=== PATIENT | male | born 1955 | race Caucasian/White ===

== ENCOUNTER 2020-12-27 08:58 | Observation (INO) ==
[2020-12-21 21:59] LABS: Blood Urea Nitrogen 17 mg/dL (8-23); Calcium 9.6 mg/dL (8.6-10.4); Carbon Dioxide 25 mmol/L (22-30); Chloride 101 mmol/L (96-108); Glomerular Filtration Rate 93; Glucose 148 mg/dL (70-105)
[2020-12-21 22:28] LABS: Basophils # (Auto) 0.05 K/mcL (0.00-0.30); Basophils % (Auto) 0.7 % (0.0-2.0); Eosinophils # (Auto) 0.07 K/mcL (0.00-0.70); Hematocrit 44.5 % (40.1-51.0); Hemoglobin 14.8 g/dL (13.7-17.5); Lymphocytes # (Auto) 1.06 K/mcL (1.50-4.80); Lymphocytes % (Auto) 14.9 % (15.5-49.0); Mean Cell Volume 94.3 fL (80.0-100.0); Mean Corpuscular HGB Conc 33.3 g/dL (31.0-36.0); Mean Platelet Volume 11.7 fL (7.4-10.4); Monocytes # (Auto) 0.51 K/mcL (0.10-0.90); Monocytes % (Auto) 7.2 % (1.0-12.0); Neutrophils % (Auto) 76.2 % (38.0-78.0); Platelet Count 138 K/mcL (140-440); RBC 4.72 M/mcL (4.63-6.08); Red Cell Distribution Width 13.3 % (11.5-14.5); WBC 7.1 K/mcL (4.5-11.0)
--- NOTE | 2020-12-22 18:34 | EKG ---
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
[~2020-12-27 08:58] MED LIST: ceFAZolin 2 GM in DEXTROSE 5% IN WATER 50 ML IV SCH
[2020-12-27] MEDS ORDERED: LIDOCAINE HCL/PF 100 MG/5 ML SYRINGE IV ONE (11:25)
[2020-12-27] MEDS ORDERED: PROPOFOL 200 MG/20 ML VIAL IV ONE (11:25)
[2020-12-27] MEDS ORDERED: ROCURONIUM 10 MG/ML ML IV ONE (11:25)
[2020-12-27] MEDS ORDERED: ePHEDrine 50 MG/5 ML SYRINGE (ANEST) IV ONE (11:25)
[2020-12-27] MEDS ORDERED: MAGNESIUM SULFATE 4 GM/100 ML BAG IV ONE (11:25)
[2020-12-27] MEDS ORDERED: fentaNYL 250 MCG/5 ML VIAL IV ONE (11:25)
[2020-12-27] MEDS ORDERED: SUGAMMADEX SODIUM 200 MG/2 ML VIAL IV ONE (11:25)
[2020-12-27] MEDS ORDERED: DEXAMETHASONE 10 MG/ML VIAL ONE (11:25)
[2020-12-27] MEDS ORDERED: ONDANSETRON 4 MG/2 ML VIAL ONE (11:25)
[2020-12-27] MEDS ORDERED: KETAMINE 50 MG/ML Syringe (ANEST) IV ONE (11:25)
[2020-12-27] MEDS ORDERED: LIDOCAINE W/EPI 1% 20 ML, BUPIVACAINE 0.5% 20 ML IJ ONE (11:48)
[2020-12-27] MEDS ORDERED: IOVERSOL 20 ML VIAL IJ ONE (11:48)
[2020-12-27] MEDS ORDERED: PROMETHAZINE 25 MG/ML VIAL IV PRN (12:01)
[2020-12-27] MEDS ORDERED: fentaNYL 100 MCG/2 ML VIAL IV PRN (12:01)
[2020-12-27] MEDS ORDERED: MEPERIDINE 25 MG/ML VIAL IV PRN (12:01)
[2020-12-27] MEDS ORDERED: diphenhydrAMINE 50 MG/ML VIAL IV PRN (12:01)
[2020-12-27] MEDS ORDERED: METHOCARBAMOL 1,000 MG/10 ML VIAL IV PRN (12:01)
[2020-12-27] MEDS ORDERED: ACETAMINOPHEN 1,000 MG/100 ML BAG IV ONE (12:01)
[2020-12-27] MEDS ORDERED: IPRATROPIUM/ALBUTEROL 3 ML AMPUL.NEB NEB PRN (12:01)
[2020-12-27] MEDS ORDERED: KETOROLAC 15 MG/ML VIAL IV PRN (12:01)
[2020-12-27] MEDS ORDERED: ONDANSETRON 4 MG/2 ML VIAL IV PRN ×2 (12:01→12:41)
[2020-12-27] MEDS ORDERED: LACTATED RINGERS 250 ML IV PRN (12:01)
[2020-12-27] MEDS ORDERED: NALOXONE HCL 0.4 MG/ML VIAL IV PRN (12:01)
[2020-12-27] MEDS ORDERED: LACTATED RINGERS 1,000 ML IV SCH (12:15)
--- NOTE | 2020-12-27 12:36 | Operative Note ---
Brief Operative Note Date of procedure: 12/27/20 Pre-op diagnosis: Cholelithiasis, choledocholithiasis Post-op diagnosis: same Procedure: Laparoscopic cholecystectomy, intraoperative cholangiogram, laparoscopic common bile duct exploration Grafts/Implants: No Anesthesia: GETA Findings: Cholelithiasis, chronic cholecystitis, choledocholithiasis, unable to clear duct Complications: none Surgeon: Kervin Singh Estimated blood loss (cc): 25 Specimens Removed/Pathology: other (Gallbladder and contents) Condition: stable Disposition: PACU Operative Note Operative Note: After risk benefits and alternatives to the procedure were discussed with the patient at length he verbalized understanding and desire to continue with the procedure. Patient was taken main operating room placed upon the operative table. General anesthesia was induced over endotracheal tube. Patient was prepped and draped in the standard sterile surgical fashion. Surgical timeout was taken to verify patient and procedure being performed. 1% lidocaine half percent Marcaine was used for local anesthesia throughout the case. Left upper quadrant incision was made, a varies needle was inserted and the abdominal cavity was insufflated with carbon dioxide. The abdominal cavity was then entered under direct vision using a 5 mm Optiview trocar through a supraumbilical incision. Visual inspection revealed no injuries and the varies needle was removed under direct vision. 12 mm upper midline trocar, 5 mm right upper quadrant, and a second 5 mm right upper quadrant trochars were all placed under direct vision. Patient was placed in a head up right side up position. Attention was turned to the gallbladder where multiple attachments to the omentum were carefully taken down with blunt and electrocautery dissection. The peritoneal attachments were taken down to pedunculated gallbladder, the trauma VIVIAN was carefully dissected free with blunt dissection. Once a critical view of safety was clearly identified the cystic duct was clipped, on table cholangiogram was performed which showed good filling of the common bile duct the common hepatic duct and the left and right radicles. In the distal common bile duct it was dilated and there was a filling defect. IV glucagon was given and the duct was flushed with 1% lidocaine repeat cholangiogram showed no clearing of the duct. A 4 Croatian Daniel catheter was then passed into the small bowel and passed without difficulty the balloon was blown up and the catheter was slowly pulled back, no stones were cleared, repeat cholangiogram showed continued distal filling defect. At this time a decision was made the removal or further manipulation of the common bile duct therefore the cystic duct and cystic artery were surgically clipped and transected. The gallbladder was removed from the gallbladder fossa using electrocautery this placed in Endo Catch bag removed through the upper midline incision and passed off the field for surgical pathology. Attention was turned back to the gallbladder fossa which was inspected hemostasis, lightly irrigated and hemostasis was assured. The upper midline fascial defect was then reapproximated with a interrupted 0 Vicryl suture. CO2 and trochars were removed from the abdominal cavity under direct vision. Trocar sites were inspected for hemostasis. Skin edges were closed with interrupted 4 Monocryl sutures skin glue dressings were applied. Patient was then awakened from anesthesia transported postanesthesia care unit awake alert in good condition.
[2020-12-27] MEDS ORDERED: LIDOCAINE 1% 20 ML VIAL SQ ONE (12:43)
--- NOTE | 2020-12-27 13:32 | XRay Report ---
HISTORY: FINDINGS: IMPRESSION: There are 0.6 minutes of fluoroscopy time was used. Interpreted and Authenticated by: Hima Hernandez 12/27/20
[2020-12-27] MEDS: morphine 4 MG/ML VIAL IV PRN ×3 (14:51→20:28)
[2020-12-27] MEDS: 0.9 % SODIUM CHLORIDE 10 ML SYRINGE IV SCH ×2 (14:52→23:29)
[2020-12-27] MEDS: DEXTROSE 5%-1/2NS 1,000 ML IV SCH ×2 (16:13→23:28)
[2020-12-28] MEDS: 0.9 % SODIUM CHLORIDE 10 ML SYRINGE IV SCH ×3 (04:06→20:50)
[2020-12-28] MEDS: DEXTROSE 5%-1/2NS 1,000 ML IV SCH ×4 (04:57→19:17)
--- NOTE | 2020-12-28 14:49 | Surgical Pathology Report ---
Histology Microscopic Diagnosis Specimen A- GALLBLADDER, CHOLECYSTECTOMY: --- CHRONIC CHOLECYSTITIS. --- NO GALLSTONES IDENTIFIED WITHIN THE GALLBLADDER OR SPECIMEN CONTAINER. --- ONE REACTIVE LYMPH NODE (0/1). (EBD) Procedural Impression Cholelithiasis. Gross Description Received in formalin designated as gallbladder, is a purple munguia gallbladder measuring 10.3 x 4.5 x 1.9 cm. There is a metal clip on the duct. Grossly there are no stones identified. The specimen contains viscous red bile near the duct. There is a 1.5 x 1 x 0.5 cm firmer rutherford nodule. The mucosa is red-rutherford and velvety. The wall is up to 0.3 cm thick. Welt Slasher sections are submitted in one cassette. (SCB:di) Electronically Signed Laya Mosqueda MD, FCAP Electronically Signed 12/28/2020 14:48
[2020-12-28] MEDS ORDERED: PROPOFOL 200 MG/20 ML VIAL IV ONE ×3 (15:48→17:17)
[2020-12-28] MEDS ORDERED: NITROGLYCERIN 0.6 MG/HR PATCH TD ONE (15:48)
[2020-12-28] MEDS ORDERED: INDOMETHACIN 25 MG CAPSULE PO ONE (15:48)
[2020-12-28] MEDS ORDERED: MIDAZOLAM 2 MG/2 ML VIAL IV ONE (15:50)
[2020-12-28] MEDS: LACTATED RINGERS 1,000 ML IV SCH ×2 (16:05→18:55)
[2020-12-28] MEDS ORDERED: MIDAZOLAM 2 MG/2 ML VIAL ONE (17:17)
[2020-12-28] MEDS ORDERED: IOPAMIDOL 50 ML BOTTLE IJ ONE (18:32)
--- NOTE | 2020-12-28 20:51 | Internal Med Progress Note ---
SUBJECTIVE Subjective Patient information: Note initiated : 12/28/20 at 8:47 pm Service Date, if different from initiated Date: [] Patient: Mann Wilder a 65 y/o M admitted on 12/27/20 for Laparoscopic Cholecystectomy with Interoperative. Chief Complaint: [choledocholithiasis] Mann underwent ERCP which revealed a large pigment stone, which was removed. Following procedure, he complains of sore throat, but denies any abdominal pain. Would like to resume PO hydrocodone when he is able to resume PO intake as morphine IV causes headache. Constitutional Vitals: Vital Signs Temp Pulse Resp BP Pulse Ox 98.1 F 80 12 95/60 90 12/28/20 18:26 12/28/20 18:26 12/28/20 18:26 12/28/20 18:26 12/28/20 18:26 Period Temp Pulse Resp BP Sys/Gaines Pulse Ox Last 24 Hr 97.7 F-98.7 F 68-100 12-20 95-177/60-94 90-100 Intake and Output 12/28/20 12/28/20 12/28/20 05:59 13:59 21:59 Intake Total 956 1000 1354 Output Total 500 Balance 956 1000 854 Intake & Output: Intake & Output 12/28/20 12/28/20 12/28/20 05:59 13:59 21:59 Intake Total 956 1000 1354 Output Total 500 Balance 956 1000 854 Intake: IV 906 1000 1354 Dextrose 5%-1/2Ns IV Solution 1 906 1000 1000 ,000 ml @ 125 mls/hr IV .Q8H [facility] Rx#:[id number] Lactated Ringers 1,000 ml @ 125 354 mls/hr IV .Q8H KATHE Rx#: [id number] Oral 50 Output: Void Amount 500 Other: Urine Appearance Clear Urine Color Pale Bright Yellow Urine Odor Normal # Voids 2 Head Head exam: Present atraumatic, normal inspection and normocephalic Eye Eye exam: Present normal appearance Respiratory Respiratory exam: Present CTAB GI/Abdominal GI/Abdominal exam: Present normal bowel sounds and soft; Absent mass, organomegaly and tenderness Skin Skin exam: Present dry and warm OBJ DATA Labs CBC & Chem 7: 12/21/20 14:05 12/21/20 14:05 Meds: Medications Dextrose/Sodium Chloride (Dextrose 5%-1/2ns Iv Solution) 1,000 mls @ 125 mls/hr IV .Q8H [facility] Last Admin: 12/28/20 19:17 Dose: Not Given Documented by: Lactated Ringer's (Lactated Ringers) 1,000 mls @ 125 mls/hr IV .Q8H [facility] Last Admin: 12/28/20 18:55 Dose: 125 mls/hr Documented by: Morphine Sulfate (Morphine 4 Mg/Ml Vial) 4 mg IV Q4HP PRN; Protocol PRN Reason: Per Pain Protocol Last Admin: 12/27/20 20:28 Dose: 4 mg Documented by: Ondansetron HCl (Ondansetron 4 Mg/2 Ml Vial) 4 mg IV Q6HP PRN PRN Reason: Nausea And Vomiting Sodium Chloride (0.9 % Sodium Chloride 10 Ml Syringe) 10 ml IV Q8 [facility] Last Admin: 12/28/20 15:14 Dose: Not Given Documented by: A/P Assessment and plan (1) Choledocholithiasis: Status: Acute Comment: Choledocholithiasis, resolved. Will prescribe cepacol or viscous lidocaine for sore throat following ERCP. Will check CBC, CMP and lipase in the morning. May resume clears 4 hours after papillotomy and can resume PO hydrocodone if ok with surgery. May resume normal activity. Time Spent With Patient Time: Total time spent is greater than 50% in coordination of care (as documented) at patient's floor/unit and/or counseling patient: Total time spent with greater than 50% in coordination of care (as documented) at patient's floor/unit and/or counseling patient:: less than 15 minutes
[2020-12-28] MEDS ORDERED: HYDROcodone/APAP 5/325MG TABLET PO PRN (22:06)
[2020-12-28] MEDS ORDERED: BENZOCAINE/MENTHOL 1 LOZENGE PO PRN (22:07)
[2020-12-29] MEDS ORDERED: BENZOCAINE/MENTHOL 1 LOZENGE PO ONE (00:36)
[2020-12-29] MEDS: LACTATED RINGERS 1,000 ML IV SCH (02:33)
[2020-12-29] MEDS ORDERED: HYDROcodone/APAP 5/325MG TABLET PO ONE (03:04)
[2020-12-29] MEDS: 0.9 % SODIUM CHLORIDE 10 ML SYRINGE IV SCH (04:42)
[2020-12-29] MEDS: DEXTROSE 5%-1/2NS 1,000 ML IV SCH (04:43)
[2020-12-29 07:27] LABS: Basophils # (Auto) 0.02 K/mcL (0.00-0.30); Basophils % (Auto) 0.2 % (0.0-2.0); Eosinophils # (Auto) 0.05 K/mcL (0.00-0.70); Eosinophils % (Auto) 0.6 % (0.0-7.0); Hematocrit 39.8 % (40.1-51.0); Hemoglobin 13.1 g/dL (13.7-17.5); Lymphocytes # (Auto) 1.29 K/mcL (1.50-4.80); Lymphocytes % (Auto) 15.4 % (15.5-49.0); Mean Cell Volume 94.8 fL (80.0-100.0); Mean Corpuscular HGB Conc 32.9 g/dL (31.0-36.0); Mean Platelet Volume 11.5 fL (7.4-10.4); Monocytes # (Auto) 0.69 K/mcL (0.10-0.90); Monocytes % (Auto) 8.3 % (1.0-12.0); Neutrophils % (Auto) 75.5 % (38.0-78.0); Platelet Count 148 K/mcL (140-440); Red Cell Distribution Width 13.3 % (11.5-14.5); WBC 8.4 K/mcL (4.5-11.0)
[2020-12-29 07:54] LABS: ALT/SGPT 70 U/L (<40); AST/SGOT 51 U/L (<40); Albumin 3.3 gm/dL (3.2-5.2); Albumin/Globulin Ratio 1.2 (1.0-2.3); Alkaline Phosphatase 178 U/L (39-117); Bilirubin,Total 1.1 mg/dL (0.1-1.0); Blood Urea Nitrogen 11 mg/dL (8-23); Carbon Dioxide 24 mmol/L (22-30); Chloride 106 mmol/L (96-108); Globulin 2.7 gm/dL (2.2-3.7); Glomerular Filtration Rate 98; Glucose 127 mg/dL (70-105)
--- NOTE | 2020-12-29 10:17 | Discharge Summary ---
Discharge Provider Provider Patient information: Note initiated : 12/29/20 at 10:16 am Service Date, if different from initiated Date: [] Patient: Mann Wilder 65 y/o M admitted on 12/27/20 for Laparoscopic Cholecystectomy with Interoperative. Chief Complaint: [] Date of admission: 12/27/20 16:13 Discharge date: 12/29/20 Primary care physician: Fabián Dee MD Consults: 12/27/20 12:45 Consult to Physician [CONS] Routine Comment: Consulting Provider: Kevin Ramachandran Reason For Exam: Physician to Consult COURSE Hospital Course Hospital course: Patient admitted for and underwent a laparoscopic cho lecystectomy, intraoperative cholangiogram was consistent with choledocholithiasis, multiple attempts at a common bile duct expiration were undertaken and were unsuccessful. The patient was mated postop, underwent an ERCP the next day for stone removal. He is now doing well, tolerating regular diet, pain is controlled and he is cleared for discharge Discharge diagnosis: Status post cholecystectomy, ERCP Time Spent with Patient Time attestation: Total time spent providing and/or coordinating discharge services: Physical Examination Vital Signs Vital signs: Temp Pulse Resp BP Pulse Ox 98.8 F 55 L 16 138/80 94 12/29/20 07:06 12/29/20 07:06 12/29/20 07:06 12/29/20 07:06 12/29/20 07:06 Discharge Plan Patient/Caregiver Discharge Instructions Activity: increase activity as tolerated Diet: Regular Diet Activity Restrictions/Additional Instructions: Increase activity as tolerated. May resume showering starting today. Follow-up with me in 2 to 3 weeks. Prescriptions: Continued lorazepam 1 mg tablet 2 mg PO QHS PRN (Reason: sleep) Qty: 60 RF: 1 levothyroxine 100 mcg tablet 100 mcg PO QDAY Qty: 90 RF: 2 hydrocodone-acetaminophen 7.5-325 mg tablet 1 tab PO .Q5-6H PRN (Reason: pain) Qty: 120 RF: 0 Galzin 50 mg (zinc) capsule 50 mg PO QDAY RF: 0 cholecalciferol (vitamin D3) 25 mcg (1,000 unit) capsule 25 mcg PO QDAY RF: 0 magnesium 200 mg tablet 250 mg PO QDAY RF: 0 Vitamin C 100 mg Tablet 100 mg PO QDAY RF: 0 hydrochlorothiazide 12.5 mg tablet 12.5 mg PO QAM RF: 0 Follow Up Plan Follow up with: Kervin Singh MD [Physician] - 01/11/21 8:45 am Patient Disposition: Home, Self-Care Discharge Orders: Discharge Order (Routine); Ordered 12/29/20 Ordered By: Kevin Ramachandran Pending Pending Pending: Resuscitation Status Resuscitate (Full Code) Diet Regular Diet Start Estela Dec 29 534 Hydrocodone Bitart/Acetaminophen (Hydrocodone/Apap 5/325mg Tablet) 1 tab PO Q4HP PRN; Protocol PRN Reason: Per Pain Protocol Last Admin: 12/29/20 03:00 Dose: 1 tab Documented by: PAULA Dextrose/Sodium Chloride (Dextrose 5%-1/2ns Iv Solution) 1,000 mls @ 125 mls/hr IV .Q8H [facility] Last Admin: 12/29/20 04:43 Dose: Not Given Documented by: Admin: 12/28/20 19:17 Dose: Not Given Documented by: Infusion: 12/28/20 19:08 Dose: 0 mls/hr Documented by: Admin: 12/28/20 16:39 Dose: Not Given Documented by: Infusion: 12/28/20 16:38 Dose: 125 mls/hr Documented by: Admin: 12/28/20 07:42 Dose: 125 mls/hr Documented by: Infusion: 12/28/20 07:28 Dose: 125 mls/hr Documented by: Admin: 12/28/20 04:57 Dose: Not Given Documented by: Admin: 12/27/20 23:28 Dose: 125 mls/hr Documented by: Infusion: 12/27/20 23:28 Dose: 125 mls/hr Documented by: Admin: 12/27/20 16:13 Dose: 125 mls/hr Documented by: MYKEL Lactated Ringer's (Lactated Ringers) 1,000 mls @ 125 mls/hr IV .Q8H [facility] Last Infusion: 12/29/20 02:56 Dose: 0 mls/hr Documented by: Admin: 12/29/20 02:33 Dose: Not Given Documented by: Admin: 12/28/20 18:55 Dose: 125 mls/hr Documented by: Infusion: 12/28/20 18:55 Dose: 125 mls/hr Documented by: Admin: 12/28/20 16:05 Dose: 125 mls/hr Documented by: LAZARO Morphine Sulfate (Morphine 4 Mg/Ml Vial) 4 mg IV Q4HP PRN; Protocol PRN Reason: Per Pain Protocol Last Admin: 12/27/20 20:28 Dose: 4 mg Documented by: Admin: 12/27/20 16:21 Dose: 4 mg Documented by: Admin: 12/27/20 14:51 Dose: 4 mg Documented by: DELORES Sodium Chloride (0.9 % Sodium Chloride 10 Ml Syringe) 10 ml IV Q8 [facility] Last Admin: 12/29/20 04:42 Dose: Not Given Documented by: Admin: 12/28/20 20:50 Dose: Not Given Documented by: Admin: 12/28/20 15:14 Dose: Not Given Documented by: Admin: 12/28/20 04:06 Dose: Not Given Documented by: Admin: 12/27/20 23:29 Dose: Not Given Documented by: Admin: 12/27/20 14:52 Dose: Not Given Documented by: DELORES Throat Lozenges (Benzocaine/Menthol 1 Lozenge) 1 lozenge PO PRN PRN PRN Reason: Sore Throat Last Admin: 12/29/20 00:33 Dose: 1 lozenge Documented by: PAULA Shift Summary 12/29/20 03:03 Shift Summary by Nata [email or web address], up ad andrade. Had lap ryann on 12/27 and has 3 lapsites, 12/28 ERCP. Received 1 norco 5 for 4/10 headache pain. Patient refused anymore IV fluids early this morning. He will start a regular diet at 0600, he is drinking with no nausea and pain. Should discharge today. Initialized on 12/29/20 03:03 - END OF NOTE
--- NOTE | 2020-12-30 15:57 | ERCP Procedure Note ---
ERCP Procedure Note Procedure Information Patient information: Note initiated : 12/30/20 at 3:55 pm Service Date: 12/28/20 Patient: Mann Wilder 65 y/o M admitted on 12/27/20 for Lap ryann. Pre-op diagnosis general: Common bile duct stone. Post-op diagnosis general: Common bile duct stone. Procedure: ERCP with Papilotomy Procedure narrative: The procedures, alternatives and risks were discussed with the patient and the patient's questions were answered. With endoscopist-administered intravenous sedation, the Olympus side viewing operating duodenoscope was introduced into the esophagus and advanced to the second part of the duodenum without difficulty. The ampulla of Vater was located and papillotomy performed. The bile duct was selectively cannulated taking care to avoid the pancreatic duct and cholangiogram obtained. The bile duct was markedly dilated and obstructed with a large pigment stones. Stones were extracted with balloon techniques. At the end of the procedure, the bile duct appeared to be cleared of all stones. The scope was withdrawn. Assessment: Common bile duct stone.
--- NOTE | 2021-01-03 15:03 | XRay Report ---
INDICATION: ERCP Protocol TECHNIQUE: 3.38 minutes fluoroscopy utilized by . ERCP study was performed and spot films were obtained. Cannulation of the common bile duct and balloon extraction of common bile duct stones performed. IMPRESSION: 1. ERCP with cannulation common bile duct and balloon extraction of stones performed by Dr. Ramachandran 2. Intraoperative procedure fluoroscopy and spot films utilized Interpreted and Authenticated by: Wayne Escobedo 01/03/21
== END 2020-12-29 11:35 | disposition home or self-care (01) ==
LOC: MEDSUR 08:58 → SUR 08:58 → MEDSUR 12-29 02:29
PROVIDERS: ADMIT Surgery; ATTEND Surgery